=== PATIENT | female | born 1965 | race Caucasian/White ===

== ENCOUNTER 2017-09-18 18:48 | Emergency (ER) | payer MEDICAID ==
[~2017-09-18] VITALS: Ht 167.6 cm; Wt 87.0 kg
[~2017-09-18 18:48] MED LIST: BUTA1CAP59 PO; CARB1TAB4 PO; FENO48TA5 PO; ISOS120T2 PO; METH500T97 PO; PREG200C PO; VALP250C PO; WARF-36 PO; WARF2.5T73 PO
[2017-09-18 18:53] VITALS: BP 121/88
== END 2017-09-18 19:47 | disposition home or self-care (01) ==
LOC: ED 19:30
DX: S50.862A Insect bite (nonvenomous) of left forearm, initial encounter (principal); S50.861A Insect bite (nonvenomous) of right forearm, initial encounter; J44.9 Chronic obstructive pulmonary disease, unspecified; Z88.8 Allergy status to other drugs, medicaments and biological substances; Z86.73 Personal history of transient ischemic attack (TIA), and cerebral infarction without residual deficits; W57.XXXA Bitten or stung by nonvenomous insect and other nonvenomous arthropods, initial encounter; Y93.89 Activity, other specified; Y99.8 Other external cause status; Y92.89 Other specified places as the place of occurrence of the external cause
CPT/HCPCS: 99283

== ENCOUNTER 2017-10-29 15:56 | Emergency (ER) | payer MEDICAID ==
[~2017-10-29] VITALS: Ht 167.6 cm; Wt 86.6 kg
[2017-10-29] MEDS ORDERED: IBUPROFEN 200 MG TABLET PO ONE (17:00)
[2017-10-29] MEDS ORDERED: HYDR25TA11 PO (17:02)
[2017-10-29] MEDS ORDERED: ALBU18HF IH (17:02)
[2017-10-29] MEDS ORDERED: ATOR-2 PO (17:02)
[2017-10-29] MEDS ORDERED: FLUT100B PO (17:02)
[2017-10-29] MEDS ORDERED: OMEP-110 PO (17:02)
[2017-10-29 17:21] LABS: INTERNATIONAL NORMALIZED RATIO 1.02 (0.93-1.1); PROTHROMBIN TIME 10.6 Seconds (9.6-11.5)
[2017-10-29 17:26] LABS: ALBUMIN 3.5 g/dL (3.4-5.0); ANION GAP 3 mmol/L (5-15); CALCIUM 8.7 mg/dL (8.5-10.1); CHLORIDE 108 mmol/L (98-107)
[2017-10-29 17:27] LABS: CREATININE 1.02 mg/dL (0.55-1.02)
[2017-10-29] MEDS ORDERED: IBUPROFEN 200 MG TABLET ONE (17:36)
[2017-10-29 17:37] LABS: BASOPHILS # (AUTO) 0.07 x10^3/uL (0-0.1); BASOPHILS % (AUTO) 1 % (0-1); EOSINOPHILS # (AUTO) 0.39 x10^3/uL (0-0.4); EOSINOPHILS % (AUTO) 5 % (1-7); LYMPHOCYTES # (AUTO) 1.52 x10^3/uL (1-3.4); LYMPHOCYTES % (AUTO) 17 % (22-44); MD NO; MEAN CORPUSCULAR HEMOGLOBIN 31.1 pg (27.0-34.8); MEAN CORPUSCULAR HGB CONC 33.4 g/dL (32.4-35.8); MONOCYTES # (AUTO) 0.64 x10^3/uL (0.2-0.8); MONOCYTES % (AUTO) 7 % (2-9); NEUTROPHILS # (AUTO) 6.17 x10^3/uL (1.8-6.8); NEUTROPHILS % (AUTO) 70 % (42-75); PLATELET COUNT 313 x10^3/uL (130-400); RED CELL DISTRIBUTION WIDTH 13.2 % (9.6-15.2)
[2017-10-29 18:58] VITALS: BP 106/63
== END 2017-10-29 19:08 | disposition home or self-care (01) ==
LOC: ED 19:00
DX: S39.012A Strain of muscle, fascia and tendon of lower back, initial encounter (principal); E11.9 Type 2 diabetes mellitus without complications; G43.909 Migraine, unspecified, not intractable, without status migrainosus; J44.9 Chronic obstructive pulmonary disease, unspecified; G89.29 Other chronic pain; X58.XXXA Exposure to other specified factors, initial encounter; Y93.89 Activity, other specified; Y92.89 Other specified places as the place of occurrence of the external cause; Y99.8 Other external cause status
CPT/HCPCS: 36415; 80048; 82040; 85025; 85610; 85730; 99284

== ENCOUNTER 2018-05-09 18:01 | Emergency (ER) | payer MEDICAID ==
[~2018-05-09] VITALS: Ht 167.6 cm; Wt 88.1 kg
[~2018-05-09 18:01] MED LIST changes: +ALBU18HF IH; +ATOR-2 PO; +FLUT100B PO; +HYDR25TA11 PO; +OMEP-110 PO; +WARF2.5T32 PO; -WARF2.5T73 PO
[2018-05-09 18:02] VITALS: BP 116/68
== END 2018-05-09 19:04 | disposition home or self-care (01) ==
LOC: ED 18:49
DX: L03.811 Cellulitis of head [any part, except face] (principal); L03.313 Cellulitis of chest wall; L03.311 Cellulitis of abdominal wall; L03.312 Cellulitis of back [any part except buttock and flank]; E11.9 Type 2 diabetes mellitus without complications; G89.29 Other chronic pain; Z90.49 Acquired absence of other specified parts of digestive tract; Z86.73 Personal history of transient ischemic attack (TIA), and cerebral infarction without residual deficits
CPT/HCPCS: 99283

== ENCOUNTER 2018-06-25 15:06 | Emergency (ER) | payer MEDICAID ==
[~2018-06-25] VITALS: Ht 167.6 cm; Wt 89.2 kg
[~2018-06-25 15:06] MED LIST changes: +ASPI325T80 PO; +FENO160T PO; -ISOS120T2 PO; +ISOS120T4 PO; +MELO7.5T31 PO; +METH10TA2 PO; +METH500T7 PO; +OXYC1TAB8 PO; +PREG300C PO; +SERT25TA3 PO; +TOPI25CA PO
[2018-06-25 15:14] VITALS: BP 110/73
[2018-06-25] MEDS ORDERED: ALBUTEROL SULFATE 2.5 MG/3 ML ONE (15:29)
[2018-06-25] MEDS ORDERED: ALBUTEROL SULFATE 2.5 MG/3 ML NPPB ONE (15:30)
[2018-06-25] MEDS ORDERED: DEXAMETHASONE 4 MG TABLET PO ONE (15:30)
[2018-06-25] MEDS ORDERED: DEXAMETHASONE 4 MG TABLET ONE (15:32)
== END 2018-06-25 15:57 | disposition home or self-care (01) ==
LOC: ED 15:54
DX: J00 Acute nasopharyngitis [common cold] (principal); B34.9 Viral infection, unspecified; E11.9 Type 2 diabetes mellitus without complications; J44.9 Chronic obstructive pulmonary disease, unspecified; G43.909 Migraine, unspecified, not intractable, without status migrainosus; Z86.73 Personal history of transient ischemic attack (TIA), and cerebral infarction without residual deficits; Z72.9 Problem related to lifestyle, unspecified; Z90.89 Acquired absence of other organs
CPT/HCPCS: 71046; 87081; 87880; 94640; 99284; J7613

== ENCOUNTER 2018-07-27 14:46 | Emergency (ER) | payer MEDICAID ==
[~2018-07-27] VITALS: Ht 167.6 cm; Wt 91.3 kg
--- NOTE | 2018-07-27 14:59 | NUR ---
Pt ambulates to room from triage with steady gait and balance.
--- NOTE | 2018-07-27 15:05 | NUR ---
Pt resting on livy[employer]ilet. GATO. Pt states, "I want to check if I have bronchitis. I have been coughing for two months. I pulled some rib muscles on my left side from coughing so much. My sinuses have been acting up and my ears were hurting yesterday. Pt denies cp. Pt states, "I am nauseas right now. I have diarrhea. I have been vomitting. I didn't vomit today. I get to the point where I feel like I am going to vomit because I get coughing so much." Pt connected to all monitors. All safety measures in place. Call light within reach.
[2018-07-27 15:14] LABS: BASOPHILS # (AUTO) 0.07 x10^3/uL (0-0.1); BASOPHILS % (AUTO) 1 % (0-1); EOSINOPHILS % (AUTO) 5 % (1-7); LYMPHOCYTES % (AUTO) 18 % (22-44); MD NO; MEAN CORPUSCULAR HEMOGLOBIN 30.7 pg (27.0-34.8); MEAN CORPUSCULAR HGB CONC 33.1 g/dL (32.4-35.8); MEAN CORPUSCULAR VOLUME 92.5 fL (80-100); MEAN PLATELET VOLUME 8.9 fL (7.4-10.4); MONOCYTES % (AUTO) 7 % (2-9); NEUTROPHILS # (AUTO) 6.34 x10^3/uL (1.8-6.8); NEUTROPHILS % (AUTO) 70 % (42-75); PLATELET COUNT 304 x10^3/uL (130-400); RED BLOOD COUNT 4.32 x10^6/uL (3.82-5.3); RED CELL DISTRIBUTION WIDTH 13.4 % (9.6-15.2)
[2018-07-27 15:26] LABS: ALANINE AMINOTRANSFERASE 17 U/L (12-78); ALBUMIN 3.4 g/dL (3.4-5.0); ANION GAP 3 mmol/L (5-15); CALCIUM 8.5 mg/dL (8.5-10.1); CHLORIDE 107 mmol/L (98-107); CREATININE 1.02 mg/dL (0.55-1.02)
[2018-07-27] MEDS ORDERED: CITA40TA12 PO (15:27)
[2018-07-27 15:30] LABS: ALKALINE PHOSPHATASE 143 U/L (45-117); BILIRUBIN,TOTAL 0.3 mg/dL (0.2-1.0); TOTAL PROTEIN 7.6 g/dL (6.4-8.2); TROPONIN I < 0.015 ng/mL (0.000-0.045)
[2018-07-27] MEDS ORDERED: ALBUTEROL/IPRATROPIUM 2.5MG/0.5MG, 3 ML ONE (15:49)
[2018-07-27] MEDS: ALBUTEROL/IPRATROPIUM 2.5MG/0.5MG, 3 ML NPPB SCH (16:00)
[2018-07-27] MEDS ORDERED: LAMO25TA PO (16:06)
[2018-07-27] MEDS ORDERED: LEVE100020 PO (16:06)
[2018-07-27 16:07] VITALS: BP 104/63
== END 2018-07-27 16:31 | disposition home or self-care (01) ==
LOC: ED 16:10
DX: R05 Cough (principal); J44.9 Chronic obstructive pulmonary disease, unspecified; E11.9 Type 2 diabetes mellitus without complications
CPT/HCPCS: 36415; 71045; 80053; 83880; 84484; 85025; 93005; 94640; 99284; J7620

== ENCOUNTER 2018-11-20 16:31 | Emergency (ER) | payer MEDICAID ==
[~2018-11-20] VITALS: Ht 167.6 cm; Wt 97.3 kg
[~2018-11-20 16:31] MED LIST changes: +CITA40TA12 PO; +LAMO25TA9 PO; +LEVE100020 PO
--- NOTE | 2018-11-20 16:53 | NUR ---
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
[2018-11-20 16:57] LABS: BASOPHILS # (AUTO) 0.04 x10^3/uL (0-0.1); BASOPHILS % (AUTO) 0 % (0-1); EOSINOPHILS # (AUTO) 0.41 x10^3/uL (0-0.4); EOSINOPHILS % (AUTO) 4 % (1-7); LYMPHOCYTES # (AUTO) 0.96 x10^3/uL (1-3.4); LYMPHOCYTES % (AUTO) 9 % (22-44); MD NO; MEAN CORPUSCULAR HEMOGLOBIN 31.8 pg (27.0-34.8); MEAN CORPUSCULAR HGB CONC 33.6 g/dL (32.4-35.8); MEAN CORPUSCULAR VOLUME 94.5 fL (80-100); MEAN PLATELET VOLUME 9.1 fL (7.4-10.4); MONOCYTES # (AUTO) 0.88 x10^3/uL (0.2-0.8); MONOCYTES % (AUTO) 9 % (2-9); NEUTROPHILS # (AUTO) 8.01 x10^3/uL (1.8-6.8); NEUTROPHILS % (AUTO) 78 % (42-75); PLATELET COUNT 251 x10^3/uL (130-400); RED BLOOD COUNT 4.06 x10^6/uL (3.82-5.3); RED CELL DISTRIBUTION WIDTH 14.1 % (9.6-15.2)
[2018-11-20 17:08] LABS: ALANINE AMINOTRANSFERASE 21 U/L (12-78); ALBUMIN 3.4 g/dL (3.4-5.0); ANION GAP 4 mmol/L (5-15); CALCIUM 8.4 mg/dL (8.5-10.1); CHLORIDE 103 mmol/L (98-107); CREATININE 1.08 mg/dL (0.55-1.02)
[2018-11-20 17:13] LABS: ALKALINE PHOSPHATASE 147 U/L (45-117); BILIRUBIN,TOTAL 0.5 mg/dL (0.2-1.0); TOTAL PROTEIN 7.3 g/dL (6.4-8.2); TROPONIN I < 0.015 ng/mL (0.000-0.045)
[2018-11-20 19:14] VITALS: BP 101/54
== END 2018-11-20 19:36 | disposition home or self-care (01) ==
LOC: ED 19:20
DX: J44.9 Chronic obstructive pulmonary disease, unspecified (principal); R05 Cough; G43.909 Migraine, unspecified, not intractable, without status migrainosus; Z86.73 Personal history of transient ischemic attack (TIA), and cerebral infarction without residual deficits; Z72.9 Problem related to lifestyle, unspecified; F17.200 Nicotine dependence, unspecified, uncomplicated
CPT/HCPCS: 36415; 71045; 80053; 83880; 84484; 85025; 93005; 99284